=== PATIENT | female | born 1955 | race Caucasian/White ===

== ENCOUNTER 2018-03-21 07:59 | Emergency (ER) | payer BC ==
--- NOTE | 2018-03-21 08:59 | ED.PDOC ---
History of Present Illness - General Chief Complaint: Headache Stated Complaint: headache Time Seen by Provider: 03/21/18 08:09 Source: patient, Vital Signs reviewed, family Exam Limitations: no limitations - History of Present Illness Initial Comments: Thmatyerclasilvia DURAND & worst of her life at approximately 0615 this morning. Was fine last night when she went to bed & when she awoke @ 0530. Location was left parietal with left perirobital involvement. Aggravated somewhat with head motion , alleviated with Tylenol, Motrin & taking her BP meds. Pain is now a 2. She took her BP in the midst of the DURAND & initially it wouldn't register. Later her SBPs were in the 180s. She admits to reducing her hydralazine & beta max doses about a month ago & without the knowledge of her doctor. She says she was having hypotension & her BPs "have been fine" since the dose reduction. She also takes Plavix. She denies any other symptoms except for some mild nausea. No recent trauma or illnesses. Timing/Duration: 1-3 hours Quality: severe, throbbing Head Injury Location: parietal Recent Head Trauma: no recent headache/trauma, chronic headaches - her chronic headaches are also left parietal but with different visual symptoms & never this sudden or severe., occasional headaches Improving Factors: medication Worsening Factors: movement Associated Symptoms: nausea/vomiting Allergies/Adverse Reactions: Allergies NO KNOWN ALLERGY Allergy (Verified 03/21/18 08:35) Review of Systems - Review of Systems Constitutional: States: no symptoms reported EENTM: States: no symptoms reported, see HPI Respiratory: States: no symptoms reported Cardiology: States: no symptoms reported Gastrointestinal/Abdominal: States: see HPI, nausea Genitourinary: States: no symptoms reported Musculoskeletal: States: no symptoms reported Skin: States: no symptoms reported Neurological: States: see HPI, headache Endocrine: States: no symptoms reported Hematologic/Lymphatic: States: no symptoms reported Past Medical History (General) - Patient Medical History Hx Seizures: No Hx Stroke: No Hx Dementia: No Hx Asthma: No Hx of COPD: No Hx Cardiac Disorders: No Hx Congestive Heart Failure: No Hx Pacemaker: No Hx Hypertension: Yes Hx Thyroid Disease: No Hx Diabetes: No Hx Gastroesophageal Reflux: No Hx Renal Disease: No Hx Cancer: No Hx of HIV: No Hx Hepatitis C: No Hx MRSA: No - Vaccination History Hx Tetanus, Diphtheria Vaccination: No Hx Influenza Vaccination: No Hx Pneumococcal Vaccination: No Immunizations Up to Date: No - Social History Hx Tobacco Use: Yes Hx Chewing Tobacco Use: No Hx Alcohol Use: No Hx Substance Use: No Hx Substance Use Treatment: No Hx Depression: No Feels Threatened In Home Enviroment: No Feels Threatened In a Relationship: No Hx Physical Abuse: No Hx Emotional Abuse: No Hx Suspected Abuse: No - Activities of Daily Living Hospice Agency (if applicable):: None - Female History Patient is a Female of Child Bearing Age (10 -59 yrs old): No Patient : No Family Medical History - Family History Mother Family History: Unknown Physical Exam - Physical Exam General Appearance: Alert, Comfortable, No apparent distress Eyes, Ears, Nose, Throat Exam: PERRL/EOMI, other - nml conjunctiva; no icterus; no photophobia Neck: full range of motion, supple, normal inspection Cardiovascular/Chest: regular rate, rhythm, no edema, no JVD, no murmur Respiratory: normal breath sounds, no respiratory distress, no accessory muscle use Gastrointestinal/Abdominal: non tender, soft, no organomegaly Back Exam: normal inspection Extremity: normal range of motion, normal inspection 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 She requests treatment in [facility]. Will transfer. 03/21/18 09:27 SBP 153; denies headache. No Plavix reversal at this time after discussion with receiving physician. - EKG/XRAY/CT CT Ordered: Yes - d/w radiologist. SAH. CT Interpretation Call Back: No - Consult/PCP Time Called: 09:13 Consult/PCP: Dr. Leal - ED Departure - Departure Clinical Impression: Subarachnoid hemorrhage Time of Disposition: 09:15 Disposition: Transfer to Hospital Condition: Good Critical Care Note - Critical Care Note Total Time (mins): 45
--- NOTE | 2018-03-21 09:02 | CT ---
EXAM: CT head without contrast CLINICAL INDICATION: Headache COMPARISON: There is no previous study for comparison. TECHNIQUE: The CT scan was done using contiguous axial 5 mm sections through the brain. This exam was performed according to our departmental dose-optimization program, which includes automated exposure control, adjustment of the mA and/or kV according to patient size and/or use of iterative reconstruction technique. FINDINGS: There is no midline shift, mass effect, or extraaxial fluid collection. There is subarachnoid hemorrhage within multiple sulci of the right frontal lobe. No other intracranial hemorrhage is seen. Bone window images reveal no skull fracture. There is no hydrocephalus. IMPRESSION: Right frontal subarachnoid hemorrhage. I telephoned these findings to Dr. Cortés at 9:01 AM on 03/21/2018. Electronically signed by: Williams West MD 03/21/2018 9:01 AM CDT
[2018-03-21 09:28] VITALS: O2SAT 97
[2018-03-21] MEDS ORDERED: levETIRAcetam INJ 500 MG in SODIUM CHLORIDE 0.9% 100ML 100 ML IVPB ONE (09:31)
[2018-03-21] MEDS ORDERED: SODIUM CHLORIDE 0.9% 100ML 100 ML IVPB ONE (09:34)
[2018-03-21] MEDS ORDERED: levETIRAcetam INJ 100 MG/ML VIAL IVPB ONE (09:34)
[2018-03-21 10:04] VITALS: BP 149/87; TEMP 98
== END 2018-03-21 09:48 | disposition short-term general hospital (02) ==
LOC: ER 07:59
DX: I60.9 Nontraumatic subarachnoid hemorrhage, unspecified (principal); R51 Headache; R11.2 Nausea with vomiting, unspecified; G89.29 Other chronic pain; I10 Essential (primary) hypertension; Z79.02 Long term (current) use of antithrombotics/antiplatelets; Z87.891 Personal history of nicotine dependence
CPT/HCPCS: 70450; J7050